=== PATIENT | female | born 1975 | race Hispanic/Latino ===

== ENCOUNTER 2017-04-24 10:43 | Outpatient (CLI) | payer OTHER ==
[~2017-04-24 10:43] MED LIST: Iopamidol 370 76% 100 ML VIAL ONE
[2017-04-24 11:11] LABS: Bilirubin Negative (Negative); Blood, Urine Small (Negative); Clarity Clear (Clear); Glucose, Urine (Dipstick) Negative (Negative); Leukocyte Negative (Negative); Nitrite Negative (Negative); Protein, Urine (Dipstick) 30 mg/dL (Neg-Trace)
[2017-04-24 11:26] LABS: ALT (SGPT) 52 U/L (8-55); AST (SGOT) 63 U/L (5-34); Albumin 4.3 g/dL (3.5-5.0); Alkaline Phosphatase 115 U/L (40-150); Anion Gap 17 mmol/L (10-20); BUN (Urea Nitrogen) 5 mg/dL (7.0-18.7); Bilirubin, Direct 0.2 mg/dL (0.1-0.3); Bilirubin, Total 0.5 mg/dL (0.2-1.2); Calc. Creatinine Clearance 0 mL/min (70-130); Carbon Dioxide 18 mmol/L (22-29); Chloride 103 mmol/L (98-107); Estimated GFR-MDRD Greater than 90; Globulin 3.9 g/dL (2.4-3.5); Glucose 133 mg/dL (70-105); Lipase 31 U/L (8-78); Potassium 3.7 mmol/L (3.5-5.1); Protein, Total 8.2 g/dL (6.0-8.3); Sodium 134 mmol/L (136-145)
[2017-04-24 11:41] LABS: Anisocytosis MODERATE=16-30 cells (100X) (0-5/hpf); Band 9 % (5-11); Hemoglobin 9.3 g/dL (12.0-16.0); Hypochromia MODERATE=16-30 cells (100X) (0-5/hpf); Lymphocytes 9 % (21-51); MDiff Complete? YES; Mean Corpuscular HGB CONC 30.6 g/dL (32.0-36.0); Mean Corpuscular Volume 65.5 fl (81.0-99.0); Mean Platelet Volume 6.9 fL (7.4-10.4); Microcytosis MODERATE=15-30 cells (100X) (0-5/hpf); Monocytes 4 % (0-10); Neutrophil 78 % (42-75); PLT Morphology Comment Appears Adequate; Platelet Count 202 thou/uL (130-400); RBC Distribution Width 14.7 % (11.5-14.5); Red Blood Cell (RBC) Count 4.62 mill/uL (4.20-5.40)
--- NOTE | 2017-04-24 13:02 | CT ---
NECK CT: 04/24/2017 HISTORY: Lump on neck for two weeks. TECHNIQUE: Serial axial CT imaging is obtained at 2.5 mm intervals, from the skull base through the lung apices, with IV contrast. Coronal and sagittal reformatted imaging obtained. FINDINGS: The imaged lung apices appear grossly unremarkable. The retroantral and the parapharyngeal fat appear clear bilaterally. There is fatty atrophy of the bilateral submandibular glands. The parotid glands appear grossly unre markable. The region of the tonsillar pillars, hyoid bone, epiglottis, and pre-epiglottic fat, thyroid cartilag e, cricoid cartilage, and thyroid gland appear grossly unremarkable. There are abnormal nodes within the posterior triangle on the left, abnormal in number and mildly enl arged, measuring up to 1.1 cm. No definite adenopathy is seen within the posterior triangle on the r ight. There is a mass posterior to the angle of the mandible, anterior and medial to the sternocleidomastoi d muscle and anterior to the internal jugular vein and common carotid artery on the left, best seen o n image 31, measuring 1.8 cm in short axis dimension, suggesting a nonspecific enlarged node. Additi onal enlarged node noted anterior to the left CCA and IJ, at the axial level of the hyoid bone, measu res 1.2 cm in short axis dimension. The vascular structures appear grossly unremarkable. Review of the osseous structures demonstrates no worrisome lytic or blastic bone lesions. The imaged paranasal sinuses/mastoid air cells are grossly unremarkable. IMPRESSION: Nonspecific lymphadenopathy within the neck, on the left, including nodes measuring up to 1.8 cm, pos terior to the angle of the mandible. This could signify lymphadenopathy associated with malignant/me tastatic disease, including lymphoma. Whole body imaging and ENT consultation advised. POS: [facility]
== END 2017-04-24 10:44 | disposition home or self-care (01) ==
LOC: MADLAB 10:43
PROVIDERS: ATTEND Family Medicine
DX: R22.1 Localized swelling, mass and lump, neck (principal); N10 Acute pyelonephritis; R10.13 Epigastric pain; R10.12 Left upper quadrant pain
CPT/HCPCS: 36415; 70491; 80053; 81003; 82150; 82248; 83690; 85025; 85652

== ENCOUNTER 2019-01-18 03:33 | Emergency (ER) | payer OTHER, SELFPAY | END 2019-01-18 04:30 | disposition home or self-care (01) | LOC: MADERS 03:33 | DX: L50.0 Allergic urticaria (principal); E03.9 Hypothyroidism, unspecified; Z79.899 Other long term (current) drug therapy | CPT/HCPCS: 96372; 99282; J1040 ==